=== PATIENT | female | born 1940 | race Caucasian/White ===

== ENCOUNTER 2017-02-19 07:13 | Day surgery (SDC) | payer MEDICARE, BC ==
[~2017-02-19 07:13] MED LIST: PROPOFOL 500 MG/50 ML EMU IV ONE
[2017-02-19] MEDS ORDERED: LIDOCAINE HCL 1% MPF SOL ONE (08:04)
[2017-02-19 10:08] VITALS: BP 129/84; PULSE 71; RESP 20; TEMP 97.5; O2SAT 99
== END 2017-02-19 10:20 | disposition home or self-care (01) | DRG 382 ==
LOC: SURG 07:13
PROVIDERS: ATTEND Surgery
DX: K22.70 Barrett's esophagus without dysplasia (principal)
CPT/HCPCS: J2001; J2704